=== PATIENT | male | born 1955 | race Caucasian/White ===

== ENCOUNTER → 2023-06-27 06:37 | Outpatient (REF) | payer MEDICARE, BC, SELFPAY | LOC: RAD 06:37 | PROVIDERS: ATTENDING PHYSICIAN Internal Medicine Cardiovascular Disease; FAMILY PHYSICIAN Family Medicine | DX: I25.10 Atherosclerotic heart disease of native coronary artery without angina pectoris (principal); Z72.0 Tobacco use | CPT/HCPCS: 76770 ==

== ENCOUNTER → 2024-03-26 08:13 | Outpatient (REF) | payer MEDICARE, BC, SELFPAY ==
[2024-03-26 09:20] LABS: % Basophils 1.1 % (0-2); % Eosinophils 2.3 % (0-6); % Immature Granulocytes 0.6 % (0-0.5); % Lymphocytes 38.2 % (20.5-51.1); % Monocytes 8.6 % (1.7-9.3); % Neutrophils 49.2 % (42.2-75.2); Absolute Basophils 0.1 10^3/uL (0-0.2); Absolute Eosinophils 0.1 10^3/uL (0-0.7); Absolute Lymphocytes 2.4 10^3/uL (1.2-3.4); Absolute Monocytes 0.5 10^3/uL (0.1-0.6); Hematocrit 41.9 % (39.0-52.0); Hemoglobin 14.3 g/dL (13.0-18.0); Mean Corp Hgb Conc. 34.1 g/dL (33.0-37.0); Mean Corpuscular Hgb 32.1 pg (27.0-31.0); Mean Corpuscular Volume 94.2 fL (80.0-94.0); Nucleated Red Blood Cells % 0 % (-); Platelet Count 218 10^3/uL (130-400); Red Blood Cell Count 4.45 10^6/uL (4.70-6.10); Red Cell Dist. Width 13.2 % (11.5-14.5); White Blood Cell Count 6.2 10^3/uL (4.8-10.8)
[2024-03-26 09:34] LABS: ALT (SGPT) 24 U/L (0-50); AST (SGOT) 22 U/L (17-59); Albumin 4.3 g/dl (3.5-5.0); Alkaline Phosphatase 55 U/L (38-126); Blood Urea Nitrogen 19 mg/dl (9-20); Calcium 9.5 mg/dl (8.4-10.2); Carbon Dioxide 27 mmol/L (22-30); Chloride 105 mmol/L (98-107); Glucose 107 mg/dl (70-99); HDL Cholesterol 59 mg/dl; LDL Cholesterol, Calculated 126 mg/dl; Potassium 4.6 mmol/L (3.5-5.1); Sodium 141 mmol/L (135-145); Total Bilirubin 0.4 mg/dl (0.2-1.3); Total Cholesterol 200 mg/dl (50-199); Total Protein 6.8 g/dl (6.3-8.2); Triglyceride 76 mg/dl (10-149); Very Low Density Lipoprotein 15 mg/dl (0-30); eGFR > 60.00
[2024-03-26 10:11] LABS: Urine Albumin Negative (Neg - Trace); Urine Bilirubin Negative (Negative); Urine Character Clear (Clear); Urine Color Yellow; Urine Glucose Negative (Negative); Urine Ketone Negative (Negative); Urine Leukocyte Negative (Negative); Urine Nitrite Negative (Negative); Urine Occult Blood Negative (Negative); Urine Urobilinogen Negative (Neg - 1+)
[2024-03-26 10:15] LABS: TSH 1.24 uIU/ml (0.47-4.68)
[2024-03-26 10:33] LABS: Glycohemoglobin (HgbA1c) 5.6 % (4.0-5.6)
== END ==
LOC: HWLAB 08:13
PROVIDERS: ATTENDING PHYSICIAN Family Medicine
DX: E78.2 Mixed hyperlipidemia (principal); R73.9 Hyperglycemia, unspecified; R73.01 Impaired fasting glucose; E87.5 Hyperkalemia; Z00.00 Encounter for general adult medical examination without abnormal findings
CPT/HCPCS: 36415; 80053; 80061; 81003; 83036; 84443; 85025

== ENCOUNTER 2024-04-21 02:38 | Emergency (ER) | payer MEDICARE, BC, SELFPAY ==
[2024-04-21 02:40] VITALS: BP 132/78
[2024-04-21 03:36] LABS: COVID-19 Antigen Negative (Negative)
[2024-04-21 03:54] VITALS: BMI 27.3
--- NOTE | 2024-04-21 04:14 | ED.GENMED ---
History of Present Illness
<Kathy Marshall MD, Resident - Last Filed: 04/21/24 04:34>
General
Chief Complaint: Cough
Time Seen by Provider: 04/21/24 03:38
History of Present Illness
History of Present Illness:
68-year-old male with past medical history of COPD, obstructive sleep apnea, hyperlipidemia, ACS presenting to the ED with cough. Patient notes he has been having cough for the past month and was seen in urgent care for symptoms. Patient states he
was treated for acute bronchitis with azithromycin and prednisone (for 5 days). Notes completed course of treatment 3 weeks ago. Patient was feeling better after treatment but has been having productive cough for the past ~2 weeks and notes
shortness of breath on exertion. Denies chest pain, fever, nausea, vomiting, abdominal pain. Denies sick contacts, recent travel, recent surgery. Patient is a former smoker and quit smoking about 3 years ago. Patient states has Trelegy inhaler and
nebulizer at home but they did not help with his symptoms.
Past History
<Kathy Marshall MD, Resident - Last Filed: 04/21/24 04:34>
Past History
ED Past Medical History: Asthma, CAD, COPD, HTN, Hypercholesterolemia and OR (2008)
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
Social History
Tobacco: Former smoker
Alcohol: Occasional
Drug: None
Personal:
Living: with family
Employment: Employed
Family History
Family History: Hypertension and Other (Gallbladder disease); Negative Sudden
Review of Systems
<Kathy Marshall MD, Resident - Last Filed: 04/21/24 04:34>
Review of Systems
Constitutional: Reports no symptoms
EENT: Reports no symptoms
Respiratory: Reports cough and trouble breathing
Cardiac: Reports no symptoms
ABD/GI: Reports no symptoms
: Reports no symptoms
Musculoskeletal: Reports no symptoms
Skin: Reports no symptoms
Neurological: Reports no symptoms
Endocrine: Reports no symptoms
Hematologic/Lymphatic: Reports no symptoms
Psychiatric: Reports no symptoms
Phy Exam
<Kathy Marshall MD, Resident - Last Filed: 04/21/24 04:34>
Physical Exam
Physical Exam:
GENERAL: Alert , in no apparent distress.
EYE: Pupils equal and reactive.
NECK: Supple, no significant adenopathy.
ENT: o/p clr, mmm.
CARDIAC: Regular rate and rhythm.
LUNGS: Bilateral wheezing, no acute respiratory distress, no rales/rhonchi
ABDOMEN: Soft, without focal tenderness, no r/g, no cvat.
NEUROLOGICAL: Alert and oriented, no focal neuro deficits.
SKIN: Warm and dry, skin intact.
MUSCULOSKELETAL: No edema, well perfused.
PSYCH: Normal and appropriate interaction.
Course
<Kathy Marshall MD, Resident - Last Filed: 04/21/24 04:34>
Orders/Labs/Results
Orders:
Orders
04/21/24 02:48
COVID-19 Antigen Urgent
Source: Nasal Swab
Influenza A+B Rapid Molecular Urgent
ABRAHAM Source: Nasal Swab
Specimen Description:
04/21/24 03:53
Chest [CR Chest - 2 Views ] Urgent
Comment:
Reason For Exam: cough, SOB
04/21/24 04:09
Ipratropium/Albuterol Sulfate [Duoneb] 3 ml INH R NOW ONE
04/21/24 04:10
Electrocardiogram (*1) Urgent
Reason for Study: Shortness of Breath
EKG- Treatment ONCE
04/21/24 04:47
Complete Blood Count/With Diff Urgent
Comprehensive Metabolic Panel Urgent
NT-proBNP Urgent
Troponin I Urgent
04/21/24 05:43
Dexamethasone Sod Phosphate [Decadron] 10 mg IV NOW STA
Abnormal Lab Results
04/21/24
04:47
RBC 4.60 L 10^6/uL
(4.70-6.10)
MCV 94.3 H fL
(80.0-94.0)
MCH 32.2 H pg
(27.0-31.0)
Chloride 110 H mmol/L
(98-107)
Glucose 119 H mg/dl
(70-99)
04/21/24 04:47
04/21/24 04:47
Vital Signs
Initial and Last Documented VS:
Initial Vital Signs
Temp Pulse Resp BP Pulse Ox
98.0 F 80 22 132/78 95
04/21/24 02:40 04/21/24 02:40 04/21/24 02:40 04/21/24 02:40 04/21/24 02:40
Last Documented Vital Signs
Temp Pulse Resp BP Pulse Ox
98.0 F 80 22 132/78 94
04/21/24 02:40 04/21/24 02:40 04/21/24 02:40 04/21/24 02:40 04/21/24 03:55
<Payton Del Valle, DO - Last Filed: 04/21/24 06:22>
Orders/Labs/Results
Orders:
Orders
04/21/24 02:48
COVID-19 Antigen Urgent
Source: Nasal Swab
Influenza A+B Rapid Molecular Urgent
ABRAHAM Source: Nasal Swab
Specimen Description:
04/21/24 03:53
Chest [CR Chest - 2 Views ] Urgent
Comment:
Reason For Exam: cough, SOB
04/21/24 04:09
Ipratropium/Albuterol Sulfate [Duoneb] 3 ml INH R NOW ONE
04/21/24 04:10
Electrocardiogram (*1) Urgent
Reason for Study: Shortness of Breath
EKG- Treatment ONCE
04/21/24 04:47
Complete Blood Count/With Diff Urgent
Comprehensive Metabolic Panel Urgent
NT-proBNP Urgent
Troponin I Urgent
04/21/24 05:43
Dexamethasone Sod Phosphate [Decadron] 10 mg IV NOW STA
Abnormal Lab Results
04/21/24
04:47
RBC 4.60 L 10^6/uL
(4.70-6.10)
MCV 94.3 H fL
(80.0-94.0)
MCH 32.2 H pg
(27.0-31.0)
Chloride 110 H mmol/L
(98-107)
Glucose 119 H mg/dl
(70-99)
04/21/24 04:47
04/21/24 04:47
Vital Signs
Initial and Last Documented VS:
Initial Vital Signs
Temp Pulse Resp BP Pulse Ox
98.0 F 80 22 132/78 95
04/21/24 02:40 04/21/24 02:40 04/21/24 02:40 04/21/24 02:40 04/21/24 02:40
Last Documented Vital Signs
Temp Pulse Resp BP Pulse Ox
98.0 F 80 22 132/78 94
04/21/24 02:40 04/21/24 02:40 04/21/24 02:40 04/21/24 02:40 04/21/24 03:55
<Kathy Marshall MD, Resident - Last Filed: 04/21/24 04:34>
MDM/Problems Addressed
Differential Diagnosis Includes:
Acute on chronic exacerbation of COPD
Pneumonia
Pulmonary edema 2/2 HF
MDM/Problems Addressed:
- CBC, CMP
- EKG, Troponin
- Chest x-ray
- Duonebs
<Kathy Marshall MD, Resident - Last Filed: 04/21/24 04:34>
*Critical Care Note
Total Time (30-74mins, 75-104mins- exclusive of procedures): Not Applicable
<Payton Del Valle DO - Last Filed: 04/21/24 06:22>
*Radiology
Radiology exam reviewed: preliminary read by ED provider (Chest x-ray shows mild hyperinflation, interstitial lung disease overall similar and unchanged from previous.)
*Pulse Oximetry
Patient hypoxic: no
*EKG
Interpreted by ED Provider?: Yes
Interpretation: normal
Comparison EKG: no changes (Unchanged from previous May 2022)
Rate: normal
Rhythm: sinus
Frankewing: normal axis
Interval: normal interval
QRS Pattern: normal QRS
Ischemia: no ischemia
*Digital Composer Interpretation
Rate: normal
Interpretation: normal
Rhythm: sinus
ED Attending Note
<Kathy Marshall MD, Resident - Last Filed: 04/21/24 04:34>
-
Portions of this chart may have been created with voice recognition software.� Occasional wrong word or��sound alike� substitutions may have occurred due to the inherent limitations of voice recognition software.
<Payton Del Valle DO - Last Filed: 04/21/24 06:22>
ED Attending Note
Patient seen and examined by attending physician: Yes
I performed a history and physical exam of patient and discussed management with resident, I reviewed resident's note and agree with documented findings and plan of care.: Yes
ED Attending Note:
This is a 68-year-old gentleman with history of COPD, previous smoker having quit 3 years ago. He admits to cough that began a month ago, initially evaluated at urgent care and treated with a Z-Jason as well as prednisone. Admits to moderate
improvement and in fact was evaluated by his PCP 2 weeks ago and was feeling well then with reported unremarkable pulmonary exam. Cough however has returned, persistent with wheezing and some mild dyspnea on exertion. Wheezing and chest tightness
was much worse tonight prompting ED visit. He denies chest pain or palpitations, no change in weight, no peripheral edema, no fever no chills.
He has been compliant with daily Trelegy and has been using his rescue inhaler several times per day over the past several weeks. He does have a nebulizer at home but only uses this with significant shortness of breath. Has not required his
nebulizer recently.
He has history of obstructive sleep apnea, has been using his CPAP.
68-year-old gentleman appears his stated age, bright and alert, pleasant, appears in no acute distress. Intermittent dry cough is noted most noted with a deep inspiration. Able to speak in full sentences. Afebrile. Normotensive.
HEENT: Mild nasal congestion with pale blue turbinates with scant clear rhinorrhea and mild clear postnasal drip.
Neck: Supple without adenopathy nor JVD.
Heart is regular rate and rhythm.
Lungs: No respiratory distress, moderately decreased breath sounds throughout with expiratory wheezing bilaterally.
Extremities without clubbing or cyanosis nor edema. Peripheral pulses are full and equal. Nontender.
I highly suspect exacerbation of COPD but must consider CHF, pneumonia, pleural effusion.
Will give DuoNeb nebulizer now, will check labs, EKG and chest x-ray. COVID and influenza testing negative as expected.
05:50
Patient feeling markedly improved after DuoNeb nebulizer.
Lungs have marked improvement in air movement. He does continue with mild end expiratory wheezing.
Labs are unremarkable, normal white blood cell count, normal H&H, BNP is normal at 29. Troponin is negative.
Chest x-ray shows mild hyperinflation, mild interstitial disease, overall similar and unchanged from previous film.
I suspect exacerbation of COPD and patient will be given an IV dose of Decadron and will plan for a lengthier prednisone taper.
He is eager to return to work, works part-time at a local grocery store. Recommend he stay home and rest over the next 2 days with plan to return to work as tolerated on , April 24.
He follows with pulmonary, Dr. Bowman, recommend he touch base with their office for follow-up this week versus next week.
Continue daily Trelegy and recommend he continue albuterol inhaler versus nebulizer 4 times daily as needed.
Return precautions discussed.
Discharge Plan
Departure
Patient Disposition: Home (Routine Discharge)
Date of Disposition: 04/21/24
Time of Disposition: 05:55
Patient with high blood pressure during this ER visit?: No
Condition: Good
Discharge Problem:
Acute exacerbation of chronic obstructive pulmonary disease
Instructions: COPD Exacerbation, Adult ED
Prescriptions:
New
prednisone 10 mg Tablet
See Rx Instructions .ROUTE .COMPLEX Qty: 45 0RF
Rx Instructions:
Take By Mouth:
50 mg daily x3 days, 40 mg daily x3 days,
30 mg daily x3 days, 20 mg daily x3 days,
10 mg daily x3 days
No Action
aspirin 81 MG tablet,chewable
81 mg PO DAILY
albuterol sulfate 2.5 MG/3 ML solution for nebulization
2.5 mg inhalation R Q4HPRN PRN (Reason: sob)
atorvastatin 40 MG tablet
80 mg PO DAILY
albuterol sulfate [Ventolin HFA] 90 MCG/PUFF HFA aerosol inhaler
1 puff inhalation PRN PRN (Reason: sob)
ascorbic acid (vitamin C) [Vitamin C] 500 mg Tablet
500 mg PO DAILY
zinc 50 mg Tablet
50 mg PO DAILY
cholecalciferol (vitamin D3) [Vitamin D3] 50 mcg (2,000 unit) Capsule
50 mcg PO DAILY
vitamin I90-yglua acid 500-400 mcg Tablet
1 tab PO DAILY
Rx Instructions:
administer with a meal
Trelegy Ellipta 100-62.5-25 mcg Blister With Device
1 inh INHALATION DAILY
melatonin 10 mg Tablet
10 mg PO HS PRN (Reason: insomnia)
clopidogrel 75 mg Tablet
75 mg PO DAILY Qty: 90 5RF
Trelegy Ellipta
1 dose PO AMHS
Rx Instructions:
100mcg/62.5mcg/25mcg
melatonin
10 mg PO HS PRN (Reason: sleep)
Referrals:
Vimal Savage MD [Active] - Call in 1-3 days for appt
Taran Osman DO [Family Provider] - Call in 1-3 days for appt
Stand Alone Forms: Return to Work
Interventions
Interventions:
*Risk Screen - Suicide Last Done: 04/21/24 03:57
*General Assessment Last Done: 04/21/24 02:40
*Neglect/Abuse Screening Last Done: 04/21/24 02:40
ED- Fall Risk Assessment Last Done: 04/21/24 03:55
*ED COVID-19 Vaccine History Last Done: 04/21/24 02:40
ED- Pulmonary Assessment Last Done: 04/21/24 03:55
Discharge Date and Time
Print Language: GERMAN
[2024-04-21] MEDS: DUONEB 3 ML INH (04:53)
[2024-04-21 05:11] LABS: % Eosinophils 5.6 % (0-6); % Immature Granulocytes 0.3 % (0-0.5); % Lymphocytes 21.8 % (20.5-51.1); % Neutrophils 63.3 % (42.2-75.2); Absolute Basophils 0.1 10^3/uL (0-0.2); Absolute Eosinophils 0.3 10^3/uL (0-0.7); Absolute Lymphocytes 1.3 10^3/uL (1.2-3.4); Absolute Monocytes 0.5 10^3/uL (0.1-0.6); Absolute Neutrophils 3.9 10^3/uL (1.4-6.5); Hematocrit 43.4 % (39.0-52.0); Hemoglobin 14.8 g/dL (13.0-18.0); Mean Corp Hgb Conc. 34.1 g/dL (33.0-37.0); Mean Corpuscular Hgb 32.2 pg (27.0-31.0); Mean Corpuscular Volume 94.3 fL (80.0-94.0); Mean Platelet Volume 9.8 fL (7.4-10.4); Nucleated Red Blood Cells % 0 % (-); Platelet Count 208 10^3/uL (130-400); Red Cell Dist. Width 12.9 % (11.5-14.5); White Blood Cell Count 6.1 10^3/uL (4.8-10.8)
[2024-04-21 05:20] LABS: ALT (SGPT) 16 U/L (0-50); AST (SGOT) 22 U/L (17-59); Albumin 4.3 g/dl (3.5-5.0); Alkaline Phosphatase 52 U/L (38-126); Blood Urea Nitrogen 13 mg/dl (9-20); Calcium 9.2 mg/dl (8.4-10.2); Carbon Dioxide 22 mmol/L (22-30); Chloride 110 mmol/L (98-107); Estimated Creatinine Clearance 86 ml/min; Glucose 119 mg/dl (70-99); Potassium 4.4 mmol/L (3.5-5.1); Sodium 141 mmol/L (135-145); Total Bilirubin 0.7 mg/dl (0.2-1.3); Total Protein 6.9 g/dl (6.3-8.2); eGFR > 60.00
[2024-04-21 05:34] LABS: NT-proBNP 29.5 pg/ml
[2024-04-21 05:54] LABS: Troponin I < 0.012 ng/ml
[2024-04-21] MEDS: DECADRON 10 MG IV (05:57)
== END 2024-04-21 07:42 | disposition home or self-care (01) ==
LOC: EMR 02:38
PROVIDERS: EMERGENCY PHYSICIAN Emergency Medicine; FAMILY PHYSICIAN Family Medicine
DX: J44.1 Chronic obstructive pulmonary disease with (acute) exacerbation (principal); E78.00 Pure hypercholesterolemia, unspecified; G47.33 Obstructive sleep apnea (adult) (pediatric); I10 Essential (primary) hypertension; I25.10 Atherosclerotic heart disease of native coronary artery without angina pectoris; I25.2 Old myocardial infarction; Z87.891 Personal history of nicotine dependence; Z95.5 Presence of coronary angioplasty implant and graft
CPT/HCPCS: 94640; 96374; 99285; 71046; 80053; 83880; 84484; 85025; 87502; 87811; 93005

== ENCOUNTER → 2024-05-09 07:30 | Outpatient (REF) | payer MEDICARE, BC, SELFPAY | LOC: HWRAD 07:30 | PROVIDERS: ATTENDING PHYSICIAN Internal Medicine Critical Care Medicine; FAMILY PHYSICIAN Family Medicine | DX: Z87.891 Personal history of nicotine dependence (principal) | CPT/HCPCS: 71271 ==

== ENCOUNTER → 2024-07-21 08:41 | Outpatient (REF) | payer MEDICARE, BC, SELFPAY ==
[2024-07-21 12:50] LABS: ALT (SGPT) 19 U/L (0-50); AST (SGOT) 23 U/L (17-59); Albumin 4.9 g/dl (3.5-5.0); Alkaline Phosphatase 78 U/L (38-126); Blood Urea Nitrogen 13 mg/dl (9-20); Carbon Dioxide 27 mmol/L (22-30); Chloride 103 mmol/L (98-107); Glucose 99 mg/dl (70-99); HDL Cholesterol 53 mg/dl; LDL Cholesterol, Calculated 49 mg/dl; Potassium 4.8 mmol/L (3.5-5.1); Sodium 139 mmol/L (135-145); Total Cholesterol 119 mg/dl (50-199); Total Protein 7.3 g/dl (6.3-8.2); Triglyceride 89 mg/dl (10-149); Very Low Density Lipoprotein 17 mg/dl (0-30); eGFR > 60.00
[2024-07-21 13:14] LABS: PSA, Total - Screen 2.77 ng/ml (0.0-4.0)
== END ==
LOC: HWLAB 08:41
PROVIDERS: ATTENDING PHYSICIAN Family Medicine
DX: Z00.00 Encounter for general adult medical examination without abnormal findings (principal); E78.5 Hyperlipidemia, unspecified; Z13.220 Encounter for screening for lipoid disorders; Z12.5 Encounter for screening for malignant neoplasm of prostate
CPT/HCPCS: 36415; 80053; 80061; G0103

== ENCOUNTER → 2025-03-04 06:54 | Outpatient (REF) | payer MEDICARE, BC, SELFPAY ==
[2025-03-04 09:25] LABS: Hematocrit 44.4 % (39.0-52.0); Hemoglobin 14.7 g/dL (13.0-18.0); Mean Corp Hgb Conc. 33.1 g/dL (33.0-37.0); Mean Corpuscular Volume 93.5 fL (80.0-94.0); Nucleated Red Blood Cells % 0 % (-); Platelet Count 211 10^3/uL (130-400); Red Cell Dist. Width 13.3 % (11.5-14.5)
[2025-03-04 09:46] LABS: ALT (SGPT) 16 U/L (0-50); AST (SGOT) 18 U/L (17-59); Albumin 4.6 g/dl (3.5-5.0); Alkaline Phosphatase 61 U/L (38-126); Blood Urea Nitrogen 12 mg/dl (9-20); Calcium 9.5 mg/dl (8.4-10.2); Carbon Dioxide 27 mmol/L (22-30); Chloride 109 mmol/L (98-107); Glucose 102 mg/dl (70-99); HDL Cholesterol 57 mg/dl; LDL Cholesterol, Calculated 49 mg/dl; Potassium 4.8 mmol/L (3.5-5.1); Sodium 143 mmol/L (135-145); Total Protein 7.1 g/dl (6.3-8.2); Very Low Density Lipoprotein 13 mg/dl (0-30); eGFR > 60.00
[2025-03-04 09:53] LABS: Urine Character Clear (Clear)
[2025-03-04 10:04] LABS: TSH 1.10 uIU/ml (0.47-4.68)
[2025-03-04 10:19] LABS: Urine Squamous Cell 0-2 /LPF (Few)
== END ==
LOC: HWLAB 06:54
PROVIDERS: ATTENDING PHYSICIAN Family Medicine
DX: I25.10 Atherosclerotic heart disease of native coronary artery without angina pectoris (principal); E78.5 Hyperlipidemia, unspecified; K21.9 Gastro-esophageal reflux disease without esophagitis
CPT/HCPCS: 80053; 80061; 81003; 81015; 84443; 85025

== ENCOUNTER → 2025-04-08 08:56 | Outpatient (REF) | payer MEDICARE, BC, SELFPAY ==
[2025-04-08 17:36] LABS: Urine Character Clear (Clear)
== END ==
LOC: CLAB 08:56
PROVIDERS: ATTENDING PHYSICIAN Specialist
DX: R31.1 Benign essential microscopic hematuria (principal)
CPT/HCPCS: 81003

== ENCOUNTER → 2025-04-17 14:12 | Outpatient (REF) | payer MEDICARE, BC, SELFPAY | LOC: HWRAD 14:12 | PROVIDERS: ATTENDING PHYSICIAN Nurse Practitioner Adult Health; FAMILY PHYSICIAN Family Medicine | DX: R91.1 Solitary pulmonary nodule (principal); Z87.891 Personal history of nicotine dependence | CPT/HCPCS: 71250 ==